=== PATIENT | female | born 1945 | race Caucasian/White ===

== ENCOUNTER 2021-10-11 09:55 | Inpatient (IN) | payer MEDICARE, OTHER ==
[2021-10-11] MEDS ORDERED: Diltiazem 125 MG/25 ML ONE (10:45)
[2021-10-11 10:46] LABS: #Lymphocytes 2.4 thou/uL (1.20-3.40); #Neutrophils 4.3 thou/uL (1.40-6.50); %Basophils 0.6 % (0.0-1.0); %Eosinophils 0.2 % (0.0-10.0); %Lymphocytes 31.5 % (21.0-51.0); %Monocytes 12.7 % (0.0-10.0); Hemoglobin 17.5 g/dL (12.0-16.0); Mean Corpuscular HGB CONC 33.8 g/dL (32.0-36.0); Mean Corpuscular Hemoglobin 31.9 pg (27.0-31.0); Mean Corpuscular Volume 94.5 fL (78.0-98.0); Mean Platelet Volume 8.5 fL (7.4-10.4); Platelet Count 223 thou/uL (130-400); RBC Distribution Width 11.9 % (11.5-14.5); Red Blood Cell (RBC) Count 5.48 mill/uL (4.20-5.40); White Blood Cell (WBC) Count 7.8 thou/uL (4.8-10.8)
[2021-10-11 11:09] LABS: ALT (SGPT) 24 U/L (8-55); AST (SGOT) 42 U/L (5-34); Albumin 3.3 g/dL (3.4-4.8); Alkaline Phosphatase 58 U/L (40-110); Anion Gap 15 mmol/L (10-20); BUN (Urea Nitrogen) 19 mg/dL (9.8-20.1); Bilirubin, Total 0.7 mg/dL (0.2-1.2); Calc. Creatinine Clearance 0 mL/min (70-130); Calcium 9.4 mg/dL (7.8-10.44); Carbon Dioxide 25 mmol/L (23-31); Chloride 97 mmol/L (98-107); Globulin 3.7 g/dL (2.4-3.5); Glucose 167 mg/dL (83-110); Potassium 4.2 mmol/L (3.5-5.1); Sodium 133 mmol/L (136-145)
[2021-10-11 11:24] LABS: CKMB 4.2 ng/mL (0-6.6)
[2021-10-11] MEDS ORDERED: Albuterol 200 PUFF (6.7GM INHALER) ONE ×2 (11:27→15:30)
[2021-10-11 12:08] LABS: SARS-CoV-2 NAA Rapid Test Not Detected (NotDetected)
[2021-10-11] MEDS ORDERED: Oseltamivir 75 MG CAP PO SCH (13:30)
[2021-10-11] MEDS ORDERED: Nitroglycerin 0.4 MG TAB (25 Tab Bottle) SL PRN (13:32)
[2021-10-11] MEDS ORDERED: Calcium Carbonate 500 MG ChewTAB PO PRN (13:33)
[2021-10-11] MEDS ORDERED: Senokot S 8.6-50 MG TAB PO PRN (13:33)
[2021-10-11] MEDS ORDERED: Acetaminophen 325 MG TAB PO PRN (13:33)
[2021-10-11] MEDS ORDERED: Albuterol 200 PUFF (6.7GM INHALER) INH PRN (14:03)
[2021-10-11 14:04] LABS: Troponin I 0.225 ng/mL (< 0.028)
[2021-10-11] MEDS ORDERED: methylPREDNISolone Sod Succ/PF 125 MG/2 ML VIAL ONE (14:19)
[2021-10-11] MEDS ORDERED: Sodium Chloride 0.9% 1,000 ML IV SCH (14:45)
[2021-10-11] MEDS ORDERED: Rivaroxaban 15 MG TAB PO SCH ×2 (15:00→18:00)
[2021-10-11] MEDS: Albuterol 200 PUFF (6.7GM INHALER) INH SCH ×3 (15:34→22:03)
[2021-10-11 16:00] VITALS: BMI 40.0
[2021-10-11] MEDS ORDERED: Sodium Chloride 0.9% 250 ML IV SCH (17:00)
[2021-10-11] MEDS ORDERED: Aspirin Chewable 81 MG TAB PO SCH (17:30)
[2021-10-11 17:40] LABS: CKMB 7.3 ng/mL (0-6.6)
[2021-10-11] MEDS ORDERED: guaiFENesin ER 600 MG TAB PO SCH (21:00)
[2021-10-11] MEDS: predniSONE 20 MG TAB PO SCH (21:08)
[2021-10-11] MEDS: Famotidine 20 MG TAB PO SCH (21:19)
[2021-10-11] MEDS: Oseltamivir 75 MG CAP PO SCH (21:19)
[2021-10-11] MEDS: guaiFENesin ER 600 MG TAB PO SCH (21:19)
[2021-10-11] MEDS: Latanoprost 0.005% Ophth Soln 2.5 ml Bottle EA EYE SCH (21:30)
[2021-10-12] MEDS: Albuterol 200 PUFF (6.7GM INHALER) INH SCH ×6 (03:05→22:40)
[2021-10-12 04:41] LABS: #Lymphocytes 1.3 thou/uL (1.20-3.40); #Monocytes 0.3 thou/uL (0.11-0.59); #Neutrophils 3.3 thou/uL (1.40-6.50); %Basophils 0.6 % (0.0-1.0); %Eosinophils 0.1 % (0.0-10.0); %Lymphocytes 25.4 % (21.0-51.0); %Monocytes 6.2 % (0.0-10.0); %Neutrophils 67.7 % (42.0-75.0); Mean Corpuscular HGB CONC 33.8 g/dL (32.0-36.0); Mean Corpuscular Hemoglobin 31.9 pg (27.0-31.0); Mean Corpuscular Volume 94.5 fL (78.0-98.0); Mean Platelet Volume 8.1 fL (7.4-10.4); Platelet Count 201 thou/uL (130-400); RBC Distribution Width 11.5 % (11.5-14.5); White Blood Cell (WBC) Count 4.9 thou/uL (4.8-10.8)
[2021-10-12 05:20] LABS: ALT (SGPT) 18 U/L (8-55); AST (SGOT) 28 U/L (5-34); Albumin 2.7 g/dL (3.4-4.8); Alkaline Phosphatase 49 U/L (40-110); Anion Gap 13 mmol/L (10-20); BUN (Urea Nitrogen) 16 mg/dL (9.8-20.1); Bilirubin, Total 0.5 mg/dL (0.2-1.2); Calc. Creatinine Clearance 94 mL/min (70-130); Calcium 8.1 mg/dL (7.8-10.44); Carbon Dioxide 18 mmol/L (23-31); Chloride 108 mmol/L (98-107); Globulin 3.1 g/dL (2.4-3.5); Glucose 148 mg/dL (83-110); Potassium 3.9 mmol/L (3.5-5.1); Protein, Total 5.8 g/dL (5.8-8.1); Sodium 135 mmol/L (136-145)
[2021-10-12 05:37] LABS: CKMB 6.1 ng/mL (0-6.6)
[2021-10-12] MEDS: Levothyroxine Sodium 50 MCG TAB PO SCH (05:44)
[2021-10-12] MEDS ORDERED: Rivaroxaban 10 MG TAB PO SCH ×2 (09:00)
[2021-10-12] MEDS: predniSONE 20 MG TAB PO SCH ×2 (09:59→16:29)
[2021-10-12] MEDS: Aspirin Chewable 81 MG TAB PO SCH (09:59)
[2021-10-12] MEDS: Oseltamivir 75 MG CAP PO SCH ×2 (10:00→21:16)
[2021-10-12] MEDS: Famotidine 20 MG TAB PO SCH ×2 (10:00→21:16)
[2021-10-12] MEDS: guaiFENesin ER 600 MG TAB PO SCH ×2 (10:01→21:16)
[2021-10-12 13:18] LABS: CKMB 5.4 ng/mL (0-6.6)
[2021-10-12] MEDS ORDERED: Metoprolol Tartrate 5 MG/5 ML VIAL IVP PRN (15:06)
[2021-10-12] MEDS ORDERED: Amiodarone 150 MG, Admixture Fee 1 EACH in Dextrose 5% in Water 100 ML IVPB SCH (15:30)
[2021-10-12] MEDS ORDERED: Furosemide 20 MG/2 ML VIAL SLOW IVP SCH (16:15)
[2021-10-12] MEDS: Amiodarone 450 MG in Dextrose 5% in Water 250 ML IVPB SCH (17:33)
[2021-10-12] MEDS ORDERED: methylPREDNISolone Sod Succ/PF 125 MG/2 ML VIAL IVP SCH (18:30)
[2021-10-12] MEDS: Latanoprost 0.005% Ophth Soln 2.5 ml Bottle EA EYE SCH (21:15)
[2021-10-13] MEDS: Amiodarone 450 MG in Dextrose 5% in Water 250 ML IVPB SCH ×2 (01:22→17:19)
[2021-10-13] MEDS: Albuterol 200 PUFF (6.7GM INHALER) INH SCH ×6 (03:36→23:46)
[2021-10-13] MEDS: Levothyroxine Sodium 50 MCG TAB PO SCH (06:06)
[2021-10-13] MEDS: Famotidine 20 MG TAB PO SCH ×2 (10:09→21:24)
[2021-10-13] MEDS: Oseltamivir 75 MG CAP PO SCH ×2 (10:10→21:23)
[2021-10-13] MEDS: guaiFENesin ER 600 MG TAB PO SCH ×2 (10:10→21:23)
[2021-10-13] MEDS: Rivaroxaban 10 MG TAB PO SCH (10:10)
[2021-10-13] MEDS: Aspirin Chewable 81 MG TAB PO SCH (10:10)
[2021-10-13] MEDS: predniSONE 20 MG TAB PO SCH ×2 (10:14→21:21)
[2021-10-13] MEDS ORDERED: Digoxin 0.25 MG TAB PO SCH (14:30)
[2021-10-13] MEDS: Digoxin 0.25 MG TAB PO SCH (15:41)
[2021-10-13] MEDS: methylPREDNISolone Sod Succ 40 MG VIAL IVP SCH ×2 (15:41→21:24)
[2021-10-13 17:45] LABS: Anion Gap 14 mmol/L (10-20); BUN (Urea Nitrogen) 17 mg/dL (9.8-20.1); Calc. Creatinine Clearance 76 mL/min (70-130); Calcium 8.8 mg/dL (7.8-10.44); Carbon Dioxide 24 mmol/L (23-31); Chloride 103 mmol/L (98-107); Glucose 268 mg/dL (83-110); Potassium 3.7 mmol/L (3.5-5.1); Sodium 137 mmol/L (136-145)
[2021-10-13] MEDS: Metoprolol Tartrate 25 MG TAB PO SCH (21:23)
[2021-10-13] MEDS: Latanoprost 0.005% Ophth Soln 2.5 ml Bottle EA EYE SCH (21:28)
[2021-10-14] MEDS: Albuterol 200 PUFF (6.7GM INHALER) INH SCH ×5 (03:03→18:52)
[2021-10-14 04:44] LABS: Anion Gap 11 mmol/L (10-20); BUN (Urea Nitrogen) 15 mg/dL (9.8-20.1); Calc. Creatinine Clearance 84 mL/min (70-130); Calcium 8.9 mg/dL (7.8-10.44); Carbon Dioxide 28 mmol/L (23-31); Chloride 104 mmol/L (98-107); Glucose 182 mg/dL (83-110); Potassium 4.2 mmol/L (3.5-5.1); Sodium 139 mmol/L (136-145)
[2021-10-14] MEDS: methylPREDNISolone Sod Succ 40 MG VIAL IVP SCH ×3 (05:49→21:09)
[2021-10-14] MEDS: Levothyroxine Sodium 50 MCG TAB PO SCH (05:49)
[2021-10-14] MEDS: Rivaroxaban 10 MG TAB PO SCH (09:51)
[2021-10-14] MEDS: Famotidine 20 MG TAB PO SCH ×2 (09:51→21:08)
[2021-10-14] MEDS: Metoprolol Tartrate 25 MG TAB PO SCH ×2 (09:51→21:09)
[2021-10-14] MEDS: predniSONE 20 MG TAB PO SCH ×2 (09:51→16:15)
[2021-10-14] MEDS: Aspirin Chewable 81 MG TAB PO SCH (09:51)
[2021-10-14] MEDS: Oseltamivir 75 MG CAP PO SCH ×2 (09:51→21:08)
[2021-10-14] MEDS: guaiFENesin ER 600 MG TAB PO SCH ×2 (09:51→21:09)
[2021-10-14] MEDS ORDERED: Digoxin 0.25 MG TAB PO SCH (10:00)
[2021-10-14] MEDS: Amiodarone 450 MG in Dextrose 5% in Water 250 ML IVPB SCH (10:35)
[2021-10-14] MEDS ORDERED: Budesonide 0.25 MG/2 ML NEB INH SCH (12:30)
[2021-10-14] MEDS: Albuterol Sulfate 2.5 mg/3 ml Neb EZPAP SCH (18:53)
[2021-10-14] MEDS: Budesonide 0.25 MG/2 ML NEB INH SCH (18:53)
[2021-10-14] MEDS: Latanoprost 0.005% Ophth Soln 2.5 ml Bottle EA EYE SCH (21:07)
[2021-10-15] MEDS: methylPREDNISolone Sod Succ 40 MG VIAL IVP SCH ×3 (05:13→20:40)
[2021-10-15] MEDS: Levothyroxine Sodium 50 MCG TAB PO SCH (05:13)
[2021-10-15] MEDS: Albuterol Sulfate 2.5 mg/3 ml Neb EZPAP SCH ×2 (07:21→18:13)
[2021-10-15] MEDS: Albuterol 200 PUFF (6.7GM INHALER) INH SCH ×2 (07:22→18:13)
[2021-10-15] MEDS: Budesonide 0.25 MG/2 ML NEB INH SCH ×2 (07:22→18:14)
[2021-10-15] MEDS ORDERED: Albuterol Sulfate 1.25 MG/3 ML NEB ONE (08:51)
[2021-10-15] MEDS ORDERED: PROPOFOL 200 MG/20 ML VIAL ONE (08:58)
[2021-10-15] MEDS: Aspirin Chewable 81 MG TAB PO SCH (11:28)
[2021-10-15] MEDS: predniSONE 20 MG TAB PO SCH ×2 (11:28→18:10)
[2021-10-15] MEDS: Rivaroxaban 10 MG TAB PO SCH (11:28)
[2021-10-15] MEDS: Oseltamivir 75 MG CAP PO SCH ×2 (11:28→20:39)
[2021-10-15] MEDS: guaiFENesin ER 600 MG TAB PO SCH ×2 (11:28→20:39)
[2021-10-15] MEDS: Metoprolol Tartrate 25 MG TAB PO SCH ×2 (11:28→20:40)
[2021-10-15] MEDS: Famotidine 20 MG TAB PO SCH ×2 (11:29→20:40)
[2021-10-15] MEDS: Digoxin 0.25 MG TAB PO SCH (11:29)
[2021-10-15] MEDS ORDERED: Furosemide 40 MG/4 ML VIAL SLOW IVP SCH (11:30)
[2021-10-15] MEDS: Amiodarone 450 MG in Dextrose 5% in Water 250 ML IVPB SCH (20:40)
[2021-10-15] MEDS: Latanoprost 0.005% Ophth Soln 2.5 ml Bottle EA EYE SCH (20:42)
[2021-10-15] MEDS: Albuterol 200 PUFF (6.7GM INHALER) INH PRN (22:13)
[2021-10-16] MEDS: Albuterol 200 PUFF (6.7GM INHALER) INH PRN (01:31)
[2021-10-16] MEDS: methylPREDNISolone Sod Succ 40 MG VIAL IVP SCH ×2 (05:30→14:40)
[2021-10-16] MEDS: Levothyroxine Sodium 50 MCG TAB PO SCH (05:30)
[2021-10-16] MEDS: Budesonide 0.25 MG/2 ML NEB INH SCH (07:27)
[2021-10-16] MEDS: Albuterol Sulfate 2.5 mg/3 ml Neb EZPAP SCH (07:27)
[2021-10-16] MEDS: Albuterol 200 PUFF (6.7GM INHALER) INH SCH (07:30)
[2021-10-16] MEDS: Aspirin Chewable 81 MG TAB PO SCH (08:55)
[2021-10-16] MEDS: Rivaroxaban 10 MG TAB PO SCH (08:55)
[2021-10-16] MEDS: predniSONE 20 MG TAB PO SCH ×2 (08:55→17:16)
[2021-10-16] MEDS: Oseltamivir 75 MG CAP PO SCH (08:56)
[2021-10-16] MEDS: Metoprolol Tartrate 25 MG TAB PO SCH (08:56)
[2021-10-16] MEDS: guaiFENesin ER 600 MG TAB PO SCH (08:56)
[2021-10-16] MEDS: Famotidine 20 MG TAB PO SCH (08:56)
[2021-10-16] MEDS ORDERED: Amiodarone 200 MG TAB PO SCH (09:00)
[2021-10-16 12:02] VITALS: BP 136/66; TEMP 97.7
[2021-10-16] MEDS ORDERED: Dronedarone HCl 400 MG TAB PO SCH (17:00)
[2021-10-22] MEDS ORDERED: Amiodarone 200 MG TAB PO SCH (09:00)
== END 2021-10-16 18:30 | disposition home or self-care (01) | DRG 280 ==
LOC: ERS 09:55 → ERHOLD 11:51 → 2NO 18:16
PROVIDERS: ADMIT Internal Medicine; ATTEND Internal Medicine
PROC: 5A2204Z Restoration of Cardiac Rhythm, Single (ICD-10-PCS; principal; 2021-10-15)
PROC: B246ZZ4 Ultrasonography of Right and Left Heart, Transesophageal (ICD-10-PCS; 2021-10-15)
DX: I48.0 Paroxysmal atrial fibrillation (principal); I50.33 Acute on chronic diastolic (congestive) heart failure; I21.A1 Myocardial infarction type 2; J96.01 Acute respiratory failure with hypoxia; N17.9 Acute kidney failure, unspecified; E03.9 Hypothyroidism, unspecified; J44.9 Chronic obstructive pulmonary disease, unspecified; H40.9 Unspecified glaucoma; E86.0 Dehydration; I48.92 Unspecified atrial flutter; J10.1 Influenza due to other identified influenza virus with other respiratory manifestations; I11.0 Hypertensive heart disease with heart failure; Z20.822 Contact with and (suspected) exposure to COVID-19; Z86.73 Personal history of transient ischemic attack (TIA), and cerebral infarction without residual deficits; Z79.01 Long term (current) use of anticoagulants; Z90.710 Acquired absence of both cervix and uterus; Z90.49 Acquired absence of other specified parts of digestive tract
CPT/HCPCS: 0240U; 36415; 71045; 80048; 80053; 82553; 83735; 83880; 84443; 84484; 85025; 93005; 93010; 93306; 94640; 96374; 96375; 96376; J0282; J1940; J2704; J2920; J2930; J7070; J7512; J7611; J7620; J7626